=== PATIENT | female | born 1995 | race Caucasian/White ===

== ENCOUNTER 2023-01-11 11:12 | Emergency (ER) | payer OTHER ==
[~2023-01-11] VITALS: Ht 157.5 cm; Wt 86.4 kg
[~2023-01-11 11:12] MED LIST: IBUP-2784 PO
[2023-01-11 11:13] VITALS: TEMP 98.3
[2023-01-11] MEDS ORDERED: SULFAMETHOX/TRIMETH DS 800-160 MG/TABLET PO ONE (14:45)
[2023-01-11] MEDS ORDERED: SULF-261 PO (14:45)
[2023-01-11 15:12] VITALS: BP 130/79; PULSE 78; RESP 18
== END 2023-01-11 15:13 | disposition home or self-care (01) ==
LOC: EMS 11:20
DX: T16.1XXA Foreign body in right ear, initial encounter (principal); W45.8XXA Other foreign body or object entering through skin, initial encounter; Y93.89 Activity, other specified; Y92.89 Other specified places as the place of occurrence of the external cause; Y99.8 Other external cause status
CPT/HCPCS: 10120; 99285; Z7502; Z7610